=== PATIENT | female | born 1950 | race Caucasian/White ===

== ENCOUNTER 2019-07-27 10:00 | Outpatient (CLI) | payer MEDICARE ==
[2016-02-07 00:50] VITALS: BMI 18.6
[~2019-07-27 10:00] MED LIST: COLACE100 MG PO; DETROL LA4 MG PO; GLUCOPHAGE500 MG PO; PERCOCET 10/3251 TA1 PO; PROZAC40 MG PO; VICTOZA0.6 MG/0.1 SQ
== END 2019-07-27 11:00 | disposition home or self-care (01) ==
LOC: D.MAMMO 10:00
PROVIDERS: ATTEND Family Medicine
DX: Z12.31 Encounter for screening mammogram for malignant neoplasm of breast (principal)

== ENCOUNTER 2019-12-27 17:25 | Emergency (ER) | payer MEDICARE ==
[~2019-12-27] VITALS: Ht 160 cm; Wt 61.4 kg
[2019-12-27 17:26] VITALS: Ht 160 cm; Wt 61.4 kg
[2019-12-27] MEDS ORDERED: [UNRECOGNIZED DRUG - OTHER] SC (17:31)
[2019-12-27] MEDS ORDERED: SYNTHROID25 MCG (17:31)
[2019-12-27] MEDS ORDERED: PERCOCET 5-3251 TAB PO (19:08)
[2019-12-27 19:17] VITALS: BP 130/84
[2019-12-27 19:47] LABS: BILIRUBIN NEGATIVE (NEGATIVE); GLUCOSE NEGATIVE (NEGATIVE); KETONE NEGATIVE (NEGATIVE); NITRITE NEGATIVE (NEGATIVE); SPECIFIC GRAVITY 1.015 (1.005-1.020); UROBILINOGEN NORMAL (NORMAL)
[2019-12-27 19:50] LABS: BACTERIA MANY /hpf (NEGATIVE); EPITHELIAL CELLS 0-5 /hpf (0-5); RED CELLS - URINE 0-5 /hpf (0-5)
== END 2019-12-27 19:17 | disposition home or self-care (01) ==
LOC: D.ER 17:25
PROVIDERS: Emergency Medicine
DX: S42.202A Unspecified fracture of upper end of left humerus, initial encounter for closed fracture (principal); W19.XXXA Unspecified fall, initial encounter; Y93.9 Activity, unspecified; Y92.9 Unspecified place or not applicable; T14.8XXA Other injury of unspecified body region, initial encounter; E11.9 Type 2 diabetes mellitus without complications; Z79.84 Long term (current) use of oral hypoglycemic drugs

== ENCOUNTER 2020-01-04 06:20 | Day surgery (SDC) | payer MEDICARE, OTHER ==
[~2020-01-04] VITALS: Ht 160 cm; Wt 61.2 kg
[~2020-01-04 06:20] MED LIST changes: +FUROSEMIDE20 MG PO; +PERCOCET 5-3251 TAB PO; +SYNTHROID25 MCG; +[UNRECOGNIZED DRUG - OTHER] SC
[2020-01-04 07:23] LABS: HEMATOCRIT 36.3 % (36.0-48.0); HEMOGLOBIN 11.8 g/dL (12-16); MCH 30.5 pg (26.0-34.0); MCHC 32.5 g/dL (31.0-37.0); MCV 93.8 fL (80.0-100.0); MEAN PLATELET VOLUME 9.1 fL (7.4-10.4); RBC 3.87 10x6/uL (4.00-5.40); RDW 13.2 % (11.5-14.5); WBC 5.7 10x3/uL (4.8-10.8)
[2020-01-04 07:24] LABS: CALCIUM 8.8 mg/dL (8.5-10.1); CARBON DIOXIDE 25.2 mmol/L (21.0-32.0); CREATININE - SERUM 1.9 mg/dL (0.6-1.3); POTASSIUM - SERUM 5.2 mmol/L (3.5-5.1)
[2020-01-04 07:35] VITALS: Ht 160 cm; Wt 61.2 kg
--- NOTE | 2020-01-04 11:32 | NUR ---
PATIENT'S LEFT ARM/SHOULDER BRUISING NOTED FROM FALL AT HOME. LEFT ELBOW ABRASION NOTED.
--- NOTE | 2020-01-04 14:00 | NUR ---
RIGHT HAND PIV DC'D WITH TIP INTACT. DISCHARGE INSTRUCTIONS REVIEWED WITH PATIENT AND SPOUSE, PATIENT DRESSING IN PERSONAL CLOTHING
--- NOTE | 2020-01-06 11:57 | OP ---
PATIENT NAME: JULES KHAN MEDICAL RECORD: [id number] :54 LOCATION:D.OPS ADMISSION DATE: SURGEON: LACEY CORONADO MD DATE OF OPERATION: 01/04/2020 PREOPERATIVE DIAGNOSIS: Displaced fracture of the left proximal humerus. POSTOPERATIVE DIAGNOSIS: Displaced fracture of the left proximal humerus. PROCEDURE: Open reduction internal fixation of left humerus fracture -- proximal aspect. SURGEON: Lacey Coronado MD MORTGAGE BROKER: SHELBIE Haro INTRAOPERATIVE COMPLICATIONS: None. SUMMARY OF PATHOLOGIC FINDINGS: The patient was indeed found to have a displaced fracture with a distal diaphyseal portion subluxed medially and the proximal capsule portion slightly rotated in varus position. IMPLANTS USED: [place] AxSOS plate. OPERATIVE SUMMARY IN DETAIL: After obtaining the appropriate preoperative orthopedic surgery consent as well as anesthetic consultation, evaluation and clearance, the patient was brought to the operating room and placed on the operating table in a supine position. After general laryngeal mask airway was administered, the patient was placed in beach chair position. All pressure points were well padded. She was held firmly to the operating table using the vacuum pack suction system. Left upper extremity and shoulder were then prepped and draped in routine sterile fashion. The arm was held in the Arth[employer] Trimano arm holding device. At this point, the appropriate timeout was taken and given the patient's unique identifiers and agreed upon by all in the operative suite. Deltopectoral incision was made, taken down to the level of cephalic vein, which was isolated and protected throughout the case. Deltoid was retracted laterally and held using the brown retractor while the conjoined tendon was gently retracted medially. At this point, reduction maneuver was performed and radiographic guidance showed anatomic anabaptism of the alignment. At this point, the locking plate from [employer] was then placed in the appropriate position, held in place with temporary K-wires to the top of the plate. Serial and sequential drill and fill was done with a combination of both locking and nonlocking screws, which resulted in anatomic anabaptism. AP and lateral views were taken and submitted for radiologist review. Real time fluoroscopy was also used to ensure full rotation without any screw penetration into the articular surface. Having completed this, wound was then copiously irrigated, closed by SHELBIE Haro with #1 Vicryl, 2-0 Vicryl and skin geraldine. Sterile dressings were applied. The patient was awakened and taken to the recovery room in stable condition. All final needle and sponge counts were correct. TRANSINT:[id number] Voice Confirmation ID: [id number] DOCUMENT ID: [id number] OPERATIVE REPORT [id number] JULES KHAN MD, LACEY MORSE at 1157 CC: [id number] DICTATION DATE: 01/05/20 1012 FLEXOGRAPHIC PRESS PLATE SETTER: 01/05/20 1201 [facility] 01/04/[address] [id number]
== END 2020-01-04 14:10 | disposition home or self-care (01) ==
LOC: D.OPS 06:20 → D.PAN 09:30 → D.OPS 09:30
PROVIDERS: Anesthesiology; ATTEND Orthopaedic Surgery
DX: S42.202A Unspecified fracture of upper end of left humerus, initial encounter for closed fracture (principal); X58.XXXA Exposure to other specified factors, initial encounter; E11.9 Type 2 diabetes mellitus without complications; Z79.84 Long term (current) use of oral hypoglycemic drugs; J45.909 Unspecified asthma, uncomplicated

== ENCOUNTER → 2020-05-07 12:30 | Outpatient (CLI) | payer MEDICARE, OTHER ==
[2020-01-04 07:35] VITALS: BMI 23.9
== END | disposition home or self-care (01) ==
LOC: D.MRI 12:30
PROVIDERS: ATTEND Clinical Nurse Specialist Family Health
DX: M25.561 Pain in right knee (principal)